=== PATIENT | male | born 1980 | race Caucasian/White ===

== ENCOUNTER 2020-11-25 14:20 | Inpatient (IN) ==
[2020-11-25] MEDS ORDERED: rOPINIRole 1 MG TABLET PO ONE (14:29)
[2020-11-25] MEDS ORDERED: Gadolinium Contrast Agent (WT Based) IV PRN (14:39)
[2020-11-25 15:00] LABS: Basophils % 0.3 %; Eosinophils # 0.1 K/mcL (0.0-0.6); Eosinophils % 0.3 %; Hematocrit 28.3 % (37.5-50.1); Hemoglobin 9.3 g/dL (12.9-16.9); Immature Granulocytes % 0.8 % (0-4); Lymphocytes # 0.6 K/mcL (0.6-4.6); Lymphocytes % 4.1 %; Mean Corpuscular HGB Conc 32.9 g/dL (31.6-35.5); Mean Corpuscular Hemoglobin 29.3 pg (28.0-33.3); Mean Corpuscular Volume 89.3 fL (83.0-100.0); Mean Platelet Volume 10.6 fL (9.4-12.4); Monocytes # 1.8 K/mcL (0.0-1.3); Monocytes % 11.9 %; Neutrophils # 12.6 K/mcL (1.6-8.9); Platelet Count 189 K/mcL (140-400); Red Blood Count 3.17 M/mcL (4.19-5.50); Segmented Neutrophils % 82.6 %
[2020-11-25 15:01] LABS: Basophils # 0.1 K/mcL (0.0-0.2); White Blood Count 15.3 K/mcL (4.3-11.1)
[2020-11-25 15:06] LABS: INR 1.3; Prothrombin Time 14.3 Seconds (9.4-12.1)
[2020-11-25 15:08] LABS: Activated Partial Thrombo Time 29.4 Seconds (26.0-36.0)
[2020-11-25 15:33] LABS: Albumin 4.2 g/dL (3.5-5.7); Albumin/Globulin Ratio 1.3 (1.1-2.2); Bilirubin,Direct 0.4 mg/dL (0.0-0.2); Bilirubin,Indirect 0.7 mg/dL (0.0-1.0); Bilirubin,Total 1.1 mg/dL (0.3-1.0); Calcium 6.9 mg/dL (8.6-10.3); Globulin 3.2 g/dL (2.4-3.5); Magnesium 2.2 mg/dL (1.6-2.6); Potassium 3.5 mEq/L (3.5-5.1); Total Protein 7.4 g/dL (6.4-8.9)
[2020-11-25 15:46] LABS: Adenovirus Not Detected (Not Detect); Bordetella Pertussis Not Detected (Not Detect); Chlamydophila pneumoniae Not Detected (Not Detect); Coronavirus 229E Not Detected (Not Detect); Coronavirus HKU1 Not Detected (Not Detect); Coronavirus NL63 Not Detected (Not Detect); Coronavirus OC43 Not Detected (Not Detect); Human Metapneumovirus Not Detected (Not Detect); Human Rhinovirus/Enterovirus Not Detected (Not Detect); Influenza A Subtype 2009 H1 Not Detected (Not Detect); Influenza B Not Detected (Not Detect); Mycoplasma pneumoniae Not Detected (Not Detect); Parainfluenza Virus 1 Not Detected (Not Detect); Parainfluenza Virus 2 Not Detected (Not Detect); Parainfluenza Virus 3 Not Detected (Not Detect); Parainfluenza Virus 4 Not Detected (Not Detect); Respiratory Syncytial Virus Not Detected (Not Detect); SARS-CoV-2 Not Detected (Not Detect)
[2020-11-25] MEDS ORDERED: 0.9 % Sodium Chloride 500 ML IV ONE (15:46)
[2020-11-25 16:18] LABS: Troponin I 0.03 ng/mL (< 0.04)
[2020-11-25 16:43] LABS: Amorphous Sediment,Urine Few per hpf (None-Few); Bacteria,Urine Few per hpf (None-Few); Bilirubin,Urine Negative (Negative); Blood,Urine Large (Negative); Clarity,Urine Clear (Clear); Color,Urine Light-Yellow (Yellow); Glucose,Urine (UA) Normal (Normal); Ketones,Urine Negative (Negative); Leukocyte Esterase,Urine Negative (Negative); Nitrite,Urine Negative (Negative); Protein,Urine 100 mg/dL (Neg-Trace); RBC,Urine 0-3 per hpf (0-3); Specific Gravity,Urine 1.008 (1.010-1.025); Squamous Epithelial Cell,Urine Few per hpf (None-Few); Urobilinogen,Urine Normal (Normal); WBC,Urine 0-3 per hpf (0-3)
[2020-11-25] MEDS ORDERED: Ondansetron 4 MG/2 ML VIAL IVP PRN (17:44)
[2020-11-25] MEDS ORDERED: Naloxone 0.4 MG/ML INJ IVP PRN (17:44)
[2020-11-25] MEDS ORDERED: Piperacillin/Tazobactam 3.375 GM in 0.9 % Sodium Chloride Mini Bag 100 ML IVPB SCH (18:00)
[2020-11-25] MEDS ORDERED: levoFLOXacin 750 MG/150 ML 750 MG/150 ML BAG IVPB ONE (19:00)
[2020-11-25] MEDS ORDERED: Vancomycin 1,250 MG/262.5 ML IV.SOLN IVPB ONE (20:00)
[2020-11-25] MEDS ORDERED: *HR* Methadone 5 MG TABLET PO SCH (23:00)
[2020-11-26] MEDS ORDERED: *HR* Methadone 10 MG TABLET PO ONE (00:45)
[2020-11-26] MEDS: Acetaminophen 325 MG TABLET PO PRN ×2 (04:44→23:53)
[2020-11-26 07:00] LABS: Enterococcus by PCR Not Detected (Not Detect); Staphylococcus aureus by PCR DETECTED (Not Detect); mecA Methicillin-Resist Gene Not Detected (Not Detect)
[2020-11-26 07:01] LABS: Acinetobacter baumannii by PCR Not Detected (Not Detect); Candida albicans by PCR Not Detected (Not Detect); Candida glabrata by PCR Not Detected (Not Detect); Candida krusei by PCR Not Detected (Not Detect); Candida parapsilosis by PCR Not Detected (Not Detect); Candida tropicalis by PCR Not Detected (Not Detect); Enterobacter cloacae Cmplx PCR Not Detected (Not Detect); Enterobacteriaceae by PCR Not Detected (Not Detect); Escherichia coli by PCR Not Detected (Not Detect); Klebsiella oxytoca by PCR Not Detected (Not Detect); Klebsiella pneumoniae by PCR Not Detected (Not Detect); Proteus by PCR Not Detected (Not Detect); Pseudomonas aeruginosa by PCR Not Detected (Not Detect); Serratia marcescens by PCR Not Detected (Not Detect); Streptococcus agalactiae(B)PCR Not Detected (Not Detect); Streptococcus by PCR Not Detected (Not Detect); Streptococcus pneumoniae PCR Not Detected (Not Detect); Streptococcus pyogenes (A) PCR Not Detected (Not Detect)
[2020-11-26 07:13] LABS: Basophils # 0.1 K/mcL (0.0-0.2); Basophils % 0.4 %; Eosinophils # 0.1 K/mcL (0.0-0.6); Eosinophils % 0.7 %; Hematocrit 26.5 % (37.5-50.1); Hemoglobin 8.8 g/dL (12.9-16.9); Immature Granulocytes % 2.1 % (0-4); Lymphocytes # 0.5 K/mcL (0.6-4.6); Lymphocytes % 3.9 %; Mean Corpuscular HGB Conc 33.2 g/dL (31.6-35.5); Mean Corpuscular Hemoglobin 29.9 pg (28.0-33.3); Mean Corpuscular Volume 90.1 fL (83.0-100.0); Monocytes # 1.2 K/mcL (0.0-1.3); Monocytes % 10.4 %; Neutrophils # 9.8 K/mcL (1.6-8.9); Platelet Count 160 K/mcL (140-400); Red Blood Count 2.94 M/mcL (4.19-5.50); Red Cell Distribution Width 14.3 % (11.5-14.5); Segmented Neutrophils % 82.5 %; White Blood Count 11.9 K/mcL (4.3-11.1)
[2020-11-26 07:32] LABS: BUN/Creatinine Ratio 11 (6-26); Blood Urea Nitrogen 75 mg/dL (6-20); Calcium 6.6 mg/dL (8.6-10.3); Carbon Dioxide 16 mEq/L (23-29); Chloride 96 mEq/L (98-107); Glucose 74 mg/dL (70-105); Lipase 34 Units/L (11-82); Osmolality,Calculated 291 (280-300); Potassium 3.9 mEq/L (3.5-5.1); Sodium 130 mEq/L (136-145); eGFR For African Americans 11 (> 60); eGFR For Non-African Americans 9 (> 60)
[2020-11-26] MEDS ORDERED: *HR* Methadone 5 MG TABLET PO SCH ×3 (08:00→22:00)
[2020-11-26] MEDS: *HR* Methadone 5 MG TABLET PO SCH ×3 (08:08→23:49)
[2020-11-26] MEDS ORDERED: Acyclovir 200 MG CAPSULE PO SCH (09:00)
[2020-11-26] MEDS ORDERED: Vancomycin 500 MG in 0.9 % Sodium Chloride Mini Bag 100 ML IVPB ONE (10:00)
[2020-11-26 10:09] LABS: C-Reactive Protein > 300 mg/L (Less than 10)
[2020-11-26] MEDS ORDERED: ACYCLOVIR 400 MG PO SCH (10:45)
[2020-11-26] MEDS: calcitrioL 0.25 MCG CAPSULE PO SCH (13:03)
[2020-11-26] MEDS: allopurinoL 100 MG TABLET PO SCH (13:03)
[2020-11-26] MEDS ORDERED: Perflutren Lipid Microsphere 1.3 ML in 0.9 % Sodium Chloride 8.7 ML IVP PRN (13:44)
[2020-11-26] MEDS ORDERED: *HR* Heparin 10,000 UNIT/10 ML VIAL IV PRN (14:26)
[2020-11-26] MEDS: Gabapentin 100 MG CAPSULE PO SCH ×2 (15:20→20:26)
[2020-11-26] MEDS ORDERED: MOM Conc 10 ML UD.LIQ PO PRN (16:30)
[2020-11-26] MEDS: *HR* Heparin 5,000 UNIT/ML VIAL SQ SCH (16:33)
[2020-11-26 17:46] LABS: Hepatitis B Surface Antibody < 3.10 mIU/mL
[2020-11-26 17:57] LABS: Hepatitis B Surface Antigen Nonreactive (Nonreactive)
[2020-11-26] MEDS: Melatonin 3 MG TABLET PO SCH (20:26)
[2020-11-27] MEDS: *HR* Heparin 5,000 UNIT/ML VIAL SQ SCH ×3 (03:55→17:54)
[2020-11-27 07:16] LABS: Basophils % 0.3 %; Eosinophils # 0.4 K/mcL (0.0-0.6); Eosinophils % 4.1 %; Hematocrit 26.9 % (37.5-50.1); Hemoglobin 8.7 g/dL (12.9-16.9); Immature Granulocytes % 1.7 % (0-4); Lymphocytes # 0.5 K/mcL (0.6-4.6); Lymphocytes % 4.8 %; Mean Corpuscular HGB Conc 32.3 g/dL (31.6-35.5); Mean Corpuscular Hemoglobin 29.3 pg (28.0-33.3); Mean Corpuscular Volume 90.6 fL (83.0-100.0); Mean Platelet Volume 10.9 fL (9.4-12.4); Monocytes # 1.1 K/mcL (0.0-1.3); Monocytes % 11.5 %; Neutrophils # 7.2 K/mcL (1.6-8.9); Platelet Count 194 K/mcL (140-400); Red Blood Count 2.97 M/mcL (4.19-5.50); Red Cell Distribution Width 14.4 % (11.5-14.5); Segmented Neutrophils % 77.6 %; White Blood Count 9.3 K/mcL (4.3-11.1)
[2020-11-27 07:23] LABS: Calcium 6.6 mg/dL (8.6-10.3); Potassium 3.6 mEq/L (3.5-5.1)
[2020-11-27] MEDS ORDERED: *HR* Heparin 10,000 UNIT/10 ML VIAL IV PRN (08:41)
[2020-11-27] MEDS ORDERED: 0.9 % Sodium Chloride 250 ML IVC PRN (08:41)
[2020-11-27] MEDS ORDERED: 0.9 % Sodium Chloride 1,000 ML PRIME SCH (08:45)
[2020-11-27] MEDS: polyethylene glycoL 3350 17 GM POWD.PACK PO SCH (08:52)
[2020-11-27] MEDS: *HR* Methadone 5 MG TABLET PO SCH ×3 (08:53→23:28)
[2020-11-27] MEDS: calcitrioL 0.25 MCG CAPSULE PO SCH (08:54)
[2020-11-27] MEDS: Gabapentin 100 MG CAPSULE PO SCH ×3 (08:55→20:46)
[2020-11-27] MEDS: allopurinoL 100 MG TABLET PO SCH (08:55)
[2020-11-27] MEDS ORDERED: Vancomycin 1,250 MG/262.5 ML IV.SOLN IVPB ONE (16:00)
[2020-11-27] MEDS: levoFLOXacin 500 MG/100 ML 500 MG/100 ML BAG IVPB SCH (19:32)
[2020-11-27] MEDS: Melatonin 3 MG TABLET PO SCH (20:46)
[2020-11-28 03:56] LABS: Hematocrit 30.4 % (37.5-50.1); Hemoglobin 9.8 g/dL (12.9-16.9); Mean Corpuscular HGB Conc 32.2 g/dL (31.6-35.5); Mean Corpuscular Hemoglobin 29.3 pg (28.0-33.3); Mean Corpuscular Volume 90.7 fL (83.0-100.0); Mean Platelet Volume 10.8 fL (9.4-12.4); Platelet Count 275 K/mcL (140-400); Red Blood Count 3.35 M/mcL (4.19-5.50); Red Cell Distribution Width 14.4 % (11.5-14.5); White Blood Count 12.9 K/mcL (4.3-11.1)
[2020-11-28 04:18] LABS: Calcium 7.5 mg/dL (8.6-10.3); Potassium 3.2 mEq/L (3.5-5.1)
[2020-11-28 04:39] LABS: Acinetobacter baumannii by PCR Not Detected (Not Detect); Candida albicans by PCR Not Detected (Not Detect); Candida glabrata by PCR Not Detected (Not Detect); Candida krusei by PCR Not Detected (Not Detect); Candida parapsilosis by PCR Not Detected (Not Detect); Candida tropicalis by PCR Not Detected (Not Detect); Enterobacter cloacae Cmplx PCR Not Detected (Not Detect); Enterobacteriaceae by PCR Not Detected (Not Detect); Enterococcus by PCR Not Detected (Not Detect); Escherichia coli by PCR Not Detected (Not Detect); Klebsiella oxytoca by PCR Not Detected (Not Detect); Klebsiella pneumoniae by PCR Not Detected (Not Detect); Proteus by PCR Not Detected (Not Detect); Pseudomonas aeruginosa by PCR Not Detected (Not Detect); Serratia marcescens by PCR Not Detected (Not Detect); Staphylococcus aureus by PCR DETECTED (Not Detect); Staphylococcus by PCR Not Detected (Not Detect); Streptococcus agalactiae(B)PCR Not Detected (Not Detect); Streptococcus by PCR Not Detected (Not Detect); Streptococcus pneumoniae PCR Not Detected (Not Detect); Streptococcus pyogenes (A) PCR Not Detected (Not Detect); mecA Methicillin-Resist Gene Not Detected (Not Detect)
[2020-11-28] MEDS: *HR* Heparin 5,000 UNIT/ML VIAL SQ SCH ×3 (04:50→17:14)
[2020-11-28] MEDS ORDERED: *HR* Heparin 10,000 UNIT/10 ML VIAL IV PRN (08:24)
[2020-11-28] MEDS ORDERED: 0.9 % Sodium Chloride 250 ML IVC PRN (08:24)
[2020-11-28] MEDS: Gabapentin 100 MG CAPSULE PO SCH ×3 (08:26→20:39)
[2020-11-28] MEDS: calcitrioL 0.25 MCG CAPSULE PO SCH (08:26)
[2020-11-28] MEDS: allopurinoL 100 MG TABLET PO SCH (08:26)
[2020-11-28] MEDS: polyethylene glycoL 3350 17 GM POWD.PACK PO SCH (08:27)
[2020-11-28] MEDS: *HR* Methadone 5 MG TABLET PO SCH ×2 (08:27→16:10)
[2020-11-28] MEDS ORDERED: *HR* HYDROmorphone (PF) 1 MG/ML SYRINGE IM ONE (09:03)
[2020-11-28] MEDS ORDERED: predniSONE 20 MG TABLET PO ONE (09:04)
[2020-11-28] MEDS ORDERED: Isovue-370 500 ML BOTTLE IVP ONE (09:09)
[2020-11-28 11:36] LABS: Basophils # 0.1 K/mcL (0.0-0.2); Basophils % 0.5 %; Eosinophils # 0.4 K/mcL (0.0-0.6); Eosinophils % 4.1 %; Hematocrit 28.2 % (37.5-50.1); Immature Granulocytes % 1.2 % (0-4); Lymphocytes # 0.4 K/mcL (0.6-4.6); Lymphocytes % 4.1 %; Mean Corpuscular HGB Conc 31.9 g/dL (31.6-35.5); Mean Platelet Volume 10.7 fL (9.4-12.4); Monocytes # 1.1 K/mcL (0.0-1.3); Monocytes % 10.8 %; Platelet Count 197 K/mcL (140-400); Red Cell Distribution Width 14.6 % (11.5-14.5); Segmented Neutrophils % 79.3 %
[2020-11-28 11:58] LABS: Albumin 3.4 g/dL (3.5-5.7); Bilirubin,Total 0.7 mg/dL (0.3-1.0); Calcium 7.1 mg/dL (8.6-10.3); Globulin 3.4 g/dL (2.4-3.5); Potassium 3.3 mEq/L (3.5-5.1); Total Protein 6.8 g/dL (6.4-8.9); Troponin I 0.03 ng/mL (< 0.04)
[2020-11-28] MEDS: Acyclovir 200 MG CAPSULE PO SCH (16:10)
[2020-11-28] MEDS: Melatonin 3 MG TABLET PO SCH (20:40)
[2020-11-29] MEDS: *HR* Methadone 5 MG TABLET PO SCH ×3 (00:02→15:08)
[2020-11-29 01:59] LABS: Protein/Creatinine Ratio,Urine 3.32 mg/mg (0.00-0.20)
[2020-11-29] MEDS: *HR* Heparin 5,000 UNIT/ML VIAL SQ SCH ×3 (05:03→17:06)
[2020-11-29 05:54] LABS: Basophils % 0.2 %; Eosinophils % 0.1 %; Hematocrit 28.8 % (37.5-50.1); Hemoglobin 9.8 g/dL (12.9-16.9); Immature Granulocytes % 1.3 % (0-4); Lymphocytes # 0.6 K/mcL (0.6-4.6); Lymphocytes % 4.5 %; Mean Corpuscular Hemoglobin 30.6 pg (28.0-33.3); Mean Platelet Volume 10.7 fL (9.4-12.4); Monocytes # 0.8 K/mcL (0.0-1.3); Monocytes % 5.9 %; Neutrophils # 11.4 K/mcL (1.6-8.9); Platelet Count 306 K/mcL (140-400); Red Cell Distribution Width 14.6 % (11.5-14.5)
[2020-11-29 06:15] LABS: Albumin 3.9 g/dL (3.5-5.7); Bilirubin,Total 0.6 mg/dL (0.3-1.0); Calcium 8.1 mg/dL (8.6-10.3); Potassium 3.8 mEq/L (3.5-5.1); Total Protein 7.9 g/dL (6.4-8.9)
[2020-11-29] MEDS: calcitrioL 0.25 MCG CAPSULE PO SCH (09:15)
[2020-11-29] MEDS: Gabapentin 100 MG CAPSULE PO SCH ×3 (09:16→20:56)
[2020-11-29] MEDS: polyethylene glycoL 3350 17 GM POWD.PACK PO SCH (09:16)
[2020-11-29] MEDS: allopurinoL 100 MG TABLET PO SCH (09:16)
[2020-11-29] MEDS ORDERED: Vancomycin 500 MG in 0.9 % Sodium Chloride Mini Bag 100 ML IVPB ONE (11:00)
[2020-11-29] MEDS: *HR* LORazepam 0.5 MG TABLET PO PRN ×2 (12:17→22:10)
[2020-11-29] MEDS: levoFLOXacin 500 MG/100 ML 500 MG/100 ML BAG IVPB SCH (17:17)
[2020-11-29] MEDS: Melatonin 3 MG TABLET PO SCH (20:55)
[2020-11-29] MEDS: traZODone 50 MG TABLET PO SCH (20:56)
[2020-11-30] MEDS: *HR* Methadone 5 MG TABLET PO SCH ×3 (00:04→15:27)
[2020-11-30 01:10] LABS: Hematocrit 25.3 % (37.5-50.1); Mean Corpuscular Hemoglobin 29.3 pg (28.0-33.3); Mean Corpuscular Volume 91.7 fL (83.0-100.0); Mean Platelet Volume 10.8 fL (9.4-12.4); Platelet Count 250 K/mcL (140-400); Red Blood Count 2.76 M/mcL (4.19-5.50); Red Cell Distribution Width 14.6 % (11.5-14.5); White Blood Count 12.1 K/mcL (4.3-11.1)
[2020-11-30 01:12] LABS: Hemoglobin 8.1 g/dL (12.9-16.9)
[2020-11-30 01:29] LABS: Calcium 7.1 mg/dL (8.6-10.3); Potassium 3.4 mEq/L (3.5-5.1)
[2020-11-30] MEDS: *HR* Heparin 5,000 UNIT/ML VIAL SQ SCH ×3 (05:23→17:00)
[2020-11-30] MEDS ORDERED: 0.9 % Sodium Chloride 250 ML IVC PRN (08:02)
[2020-11-30] MEDS: allopurinoL 100 MG TABLET PO SCH (09:05)
[2020-11-30] MEDS: Gabapentin 100 MG CAPSULE PO SCH ×3 (09:05→21:22)
[2020-11-30] MEDS: calcitrioL 0.25 MCG CAPSULE PO SCH (09:05)
[2020-11-30] MEDS: polyethylene glycoL 3350 17 GM POWD.PACK PO SCH (09:06)
[2020-11-30] MEDS ORDERED: *HR* LORazepam 2 MG/ML VIAL IVP ONE (10:30)
[2020-11-30] MEDS ORDERED: Albumin 25% 25gram/100mL 25 GM/100 ML IV.SOLN IVPB ONE (10:34)
[2020-11-30] MEDS: Acyclovir 200 MG CAPSULE PO SCH (15:26)
[2020-11-30] MEDS ORDERED: Vancomycin 500 MG in 0.9 % Sodium Chloride Mini Bag 100 ML IVPB ONE (16:00)
[2020-11-30] MEDS: traZODone 50 MG TABLET PO SCH (21:20)
[2020-11-30] MEDS: Melatonin 3 MG TABLET PO SCH (21:20)
[2020-11-30] MEDS: Acetaminophen 325 MG TABLET PO PRN (21:26)
[2020-12-01] MEDS: *HR* Methadone 5 MG TABLET PO SCH ×4 (00:06→23:59)
[2020-12-01 03:25] LABS: Hematocrit 24.7 % (37.5-50.1); Hemoglobin 7.7 g/dL (12.9-16.9); Mean Corpuscular HGB Conc 31.2 g/dL (31.6-35.5); Mean Corpuscular Hemoglobin 29.5 pg (28.0-33.3); Mean Corpuscular Volume 94.6 fL (83.0-100.0); Mean Platelet Volume 10.7 fL (9.4-12.4); Platelet Count 225 K/mcL (140-400); Red Blood Count 2.61 M/mcL (4.19-5.50); Red Cell Distribution Width 14.9 % (11.5-14.5); White Blood Count 9.4 K/mcL (4.3-11.1)
[2020-12-01 04:04] LABS: Calcium 7.3 mg/dL (8.6-10.3); Potassium 4.1 mEq/L (3.5-5.1)
[2020-12-01] MEDS: *HR* Heparin 5,000 UNIT/ML VIAL SQ SCH ×2 (05:17→16:53)
[2020-12-01] MEDS: calcitrioL 0.25 MCG CAPSULE PO SCH (09:08)
[2020-12-01] MEDS: Gabapentin 100 MG CAPSULE PO SCH ×3 (09:08→20:44)
[2020-12-01] MEDS: allopurinoL 100 MG TABLET PO SCH (09:08)
[2020-12-01] MEDS: polyethylene glycoL 3350 17 GM POWD.PACK PO SCH (09:08)
[2020-12-01 18:07] LABS: Lambda Qnt Free Light Chains 43.16 mg/L (5.71-26.30)
[2020-12-01] MEDS: *HR* LORazepam 0.5 MG TABLET PO PRN (18:35)
[2020-12-01] MEDS: traZODone 50 MG TABLET PO SCH (20:44)
[2020-12-01] MEDS: Melatonin 3 MG TABLET PO SCH (20:44)
[2020-12-01] MEDS: Acetaminophen 325 MG TABLET PO PRN (20:45)
[2020-12-02] MEDS: *HR* Heparin 5,000 UNIT/ML VIAL SQ SCH ×2 (04:33→18:11)
[2020-12-02] MEDS: *HR* Methadone 5 MG TABLET PO SCH ×3 (08:05→23:36)
[2020-12-02] MEDS: calcitrioL 0.25 MCG CAPSULE PO SCH (08:07)
[2020-12-02] MEDS: allopurinoL 100 MG TABLET PO SCH (08:07)
[2020-12-02] MEDS: Gabapentin 100 MG CAPSULE PO SCH ×3 (08:07→20:00)
[2020-12-02] MEDS: polyethylene glycoL 3350 17 GM POWD.PACK PO SCH (08:14)
[2020-12-02] MEDS ORDERED: Vancomycin 1,250 MG/262.5 ML IV.SOLN IVPB ONE (09:00)
[2020-12-02 10:45] LABS: Kappa Qnt Free Light Chains 122.8 mg/L (3.30-19.40)
[2020-12-02] MEDS: Acyclovir 200 MG CAPSULE PO SCH (16:07)
[2020-12-02] MEDS: traZODone 50 MG TABLET PO SCH (19:59)
[2020-12-02] MEDS: Melatonin 3 MG TABLET PO SCH (20:00)
[2020-12-02] MEDS: *HR* LORazepam 0.5 MG TABLET PO PRN (20:05)
[2020-12-03 01:21] LABS: Albumin 3.1 g/dL (3.5-5.7); Bilirubin,Total 0.4 mg/dL (0.3-1.0); Calcium 6.5 mg/dL (8.6-10.3); Potassium 4.4 mEq/L (3.5-5.1); Total Protein 6.1 g/dL (6.4-8.9)
[2020-12-03] MEDS: *HR* Heparin 5,000 UNIT/ML VIAL SQ SCH ×2 (04:29→17:02)
[2020-12-03] MEDS: polyethylene glycoL 3350 17 GM POWD.PACK PO SCH (08:31)
[2020-12-03] MEDS: calcitrioL 0.25 MCG CAPSULE PO SCH (08:31)
[2020-12-03] MEDS: Gabapentin 100 MG CAPSULE PO SCH ×3 (08:31→20:29)
[2020-12-03] MEDS: *HR* Methadone 5 MG TABLET PO SCH ×2 (08:31→15:07)
[2020-12-03] MEDS: allopurinoL 100 MG TABLET PO SCH (08:31)
[2020-12-03] MEDS: traZODone 50 MG TABLET PO SCH (20:29)
[2020-12-03] MEDS: *HR* LORazepam 0.5 MG TABLET PO PRN (20:29)
[2020-12-03] MEDS: Melatonin 3 MG TABLET PO SCH (20:29)
[2020-12-04] MEDS: *HR* Methadone 5 MG TABLET PO SCH ×3 (00:18→15:18)
[2020-12-04] MEDS: *HR* Heparin 5,000 UNIT/ML VIAL SQ SCH ×2 (04:32→16:58)
[2020-12-04 04:42] LABS: Basophils % 0.5 %; Eosinophils # 0.4 K/mcL (0.0-0.6); Eosinophils % 4.7 %; Hemoglobin 7.9 g/dL (12.9-16.9); Immature Granulocytes % 1.5 % (0-4); Lymphocytes # 0.6 K/mcL (0.6-4.6); Lymphocytes % 7.5 %; Mean Corpuscular HGB Conc 31.6 g/dL (31.6-35.5); Mean Corpuscular Volume 95.1 fL (83.0-100.0); Mean Platelet Volume 10.3 fL (9.4-12.4); Monocytes # 0.7 K/mcL (0.0-1.3); Monocytes % 9.5 %; Neutrophils # 5.6 K/mcL (1.6-8.9); Platelet Count 270 K/mcL (140-400); Red Blood Count 2.63 M/mcL (4.19-5.50); Red Cell Distribution Width 14.5 % (11.5-14.5); Segmented Neutrophils % 76.3 %; White Blood Count 7.4 K/mcL (4.3-11.1)
[2020-12-04 04:54] LABS: Alpha 2 Globulin (PEP) 1.41 g/dL (0.48-1.05); Beta Globulin (PEP) 0.54 g/dL (0.48-1.10)
[2020-12-04 04:57] LABS: Calcium 7.1 mg/dL (8.6-10.3); Potassium 4.3 mEq/L (3.5-5.1)
[2020-12-04] MEDS: allopurinoL 100 MG TABLET PO SCH (08:18)
[2020-12-04] MEDS: Gabapentin 100 MG CAPSULE PO SCH ×3 (08:18→21:12)
[2020-12-04] MEDS: calcitrioL 0.25 MCG CAPSULE PO SCH (08:18)
[2020-12-04] MEDS: polyethylene glycoL 3350 17 GM POWD.PACK PO SCH (08:18)
[2020-12-04] MEDS ORDERED: *HR* Heparin 10,000 UNIT/10 ML VIAL IV PRN (09:17)
[2020-12-04] MEDS ORDERED: 0.9 % Sodium Chloride 250 ML IVC PRN (09:17)
[2020-12-04] MEDS ORDERED: Heparin 1,000 UNITS/500 mL 500 ML ONE (10:21)
[2020-12-04] MEDS ORDERED: Lidocaine/EPI 1:100k 1% 50 ML VIAL ONE (10:21)
[2020-12-04] MEDS ORDERED: 0.9 % Sodium Chloride 500 ML ONE (10:23)
[2020-12-04 10:40] LABS: IFE Reflexed IFE Done; Immunoglobulin A 162 mg/dL (68-408); Immunoglobulin G 1078 mg/dL (768-1632); Immunoglobulin M 32 mg/dL (35-263)
[2020-12-04] MEDS ORDERED: *HR* FentaNYL (PF) 100 MCG/2 ML VIAL IVP ONE (10:53)
[2020-12-04] MEDS ORDERED: *HR* Midazolam HCl 2 MG/2 ML VIAL IVP ONE (10:53)
[2020-12-04] MEDS ORDERED: *HR* Midazolam HCl 2 MG/2 ML VIAL ONE (10:55)
[2020-12-04] MEDS ORDERED: *HR* FentaNYL (PF) 100 MCG/2 ML VIAL ONE (10:55)
[2020-12-04] MEDS ORDERED: *HR* Heparin 5,000 UNIT/ML VIAL ONE (11:06)
[2020-12-04] MEDS: Acyclovir 200 MG CAPSULE PO SCH (15:18)
[2020-12-04] MEDS ORDERED: Vancomycin 500 MG in 0.9 % Sodium Chloride Mini Bag 100 ML IVPB ONE (17:00)
[2020-12-04] MEDS: Acetaminophen 325 MG TABLET PO PRN (18:13)
[2020-12-04] MEDS: Melatonin 3 MG TABLET PO SCH (21:12)
[2020-12-04] MEDS: traZODone 50 MG TABLET PO SCH (21:12)
[2020-12-05] MEDS: *HR* Methadone 5 MG TABLET PO SCH ×3 (01:11→16:13)
[2020-12-05 01:59] LABS: Basophils # 0.1 K/mcL (0.0-0.2); Eosinophils # 0.3 K/mcL (0.0-0.6); Eosinophils % 4.8 %; Hematocrit 27.5 % (37.5-50.1); Hemoglobin 8.3 g/dL (12.9-16.9); Immature Granulocytes % 0.9 % (0-4); Lymphocytes # 0.4 K/mcL (0.6-4.6); Lymphocytes % 7.4 %; Mean Corpuscular HGB Conc 30.2 g/dL (31.6-35.5); Mean Corpuscular Hemoglobin 28.8 pg (28.0-33.3); Mean Corpuscular Volume 95.5 fL (83.0-100.0); Mean Platelet Volume 10.3 fL (9.4-12.4); Monocytes # 0.6 K/mcL (0.0-1.3); Monocytes % 10.8 %; Neutrophils # 4.4 K/mcL (1.6-8.9); Platelet Count 259 K/mcL (140-400); Red Blood Count 2.88 M/mcL (4.19-5.50); Red Cell Distribution Width 14.3 % (11.5-14.5); Segmented Neutrophils % 75.1 %; White Blood Count 5.8 K/mcL (4.3-11.1)
[2020-12-05 02:08] LABS: Calcium 7.2 mg/dL (8.6-10.3); Potassium 4.4 mEq/L (3.5-5.1)
[2020-12-05] MEDS: *HR* Heparin 5,000 UNIT/ML VIAL SQ SCH ×2 (05:08→16:15)
[2020-12-05] MEDS: calcitrioL 0.25 MCG CAPSULE PO SCH (08:48)
[2020-12-05] MEDS: Acetaminophen 325 MG TABLET PO PRN ×3 (08:48→22:25)
[2020-12-05] MEDS: allopurinoL 100 MG TABLET PO SCH (08:49)
[2020-12-05] MEDS: Gabapentin 100 MG CAPSULE PO SCH ×3 (08:49→22:19)
[2020-12-05] MEDS: *HR* LORazepam 0.5 MG TABLET PO PRN ×2 (08:49→16:33)
[2020-12-05] MEDS: polyethylene glycoL 3350 17 GM POWD.PACK PO SCH (08:49)
[2020-12-05] MEDS: Melatonin 3 MG TABLET PO SCH (22:19)
[2020-12-05] MEDS: traZODone 50 MG TABLET PO SCH (22:19)
[2020-12-06] MEDS: *HR* Methadone 5 MG TABLET PO SCH ×3 (00:05→16:30)
[2020-12-06 04:01] LABS: Calcium 7.1 mg/dL (8.6-10.3); Potassium 4.2 mEq/L (3.5-5.1)
[2020-12-06] MEDS: *HR* Heparin 5,000 UNIT/ML VIAL SQ SCH ×2 (04:01→16:31)
[2020-12-06] MEDS: calcitrioL 0.25 MCG CAPSULE PO SCH (09:22)
[2020-12-06] MEDS: Gabapentin 100 MG CAPSULE PO SCH ×3 (09:22→21:27)
[2020-12-06] MEDS: allopurinoL 100 MG TABLET PO SCH (09:22)
[2020-12-06] MEDS: polyethylene glycoL 3350 17 GM POWD.PACK PO SCH (09:26)
[2020-12-06] MEDS: Acyclovir 200 MG CAPSULE PO SCH (16:31)
[2020-12-06] MEDS: traZODone 50 MG TABLET PO SCH (21:26)
[2020-12-06] MEDS: Melatonin 3 MG TABLET PO SCH (21:28)
[2020-12-06] MEDS: *HR* LORazepam 0.5 MG TABLET PO PRN (21:34)
[2020-12-07] MEDS: *HR* Methadone 5 MG TABLET PO SCH ×3 (00:15→17:00)
[2020-12-07] MEDS: *HR* Heparin 5,000 UNIT/ML VIAL SQ SCH ×2 (05:42→17:04)
[2020-12-07] MEDS: calcitrioL 0.25 MCG CAPSULE PO SCH (07:43)
[2020-12-07] MEDS: allopurinoL 100 MG TABLET PO SCH (07:44)
[2020-12-07] MEDS ORDERED: *HR* Heparin 10,000 UNIT/10 ML VIAL IV PRN (08:17)
[2020-12-07] MEDS ORDERED: 0.9 % Sodium Chloride 250 ML IVC PRN ×2 (08:17→08:32)
[2020-12-07 08:28] LABS: Hematocrit 24.2 % (37.5-50.1); Hemoglobin 7.4 g/dL (12.9-16.9); Mean Corpuscular HGB Conc 30.6 g/dL (31.6-35.5); Mean Corpuscular Hemoglobin 29.1 pg (28.0-33.3); Mean Corpuscular Volume 95.3 fL (83.0-100.0); Mean Platelet Volume 10.1 fL (9.4-12.4); Platelet Count 232 K/mcL (140-400); Red Blood Count 2.54 M/mcL (4.19-5.50); Red Cell Distribution Width 14.1 % (11.5-14.5); White Blood Count 4.2 K/mcL (4.3-11.1)
[2020-12-07] MEDS ORDERED: *HR* Midazolam HCl 5 MG/5 ML VIAL IVP PRN (08:32)
[2020-12-07] MEDS ORDERED: Lidocaine Viscous Oral Soln 15 ML SOLUTION MM PRN ×2 (08:32→12:47)
[2020-12-07] MEDS ORDERED: *HR* FentaNYL (PF) 100 MCG/2 ML VIAL IVP PRN (08:32)
[2020-12-07] MEDS ORDERED: 0.9 % Sodium Chloride 500 ML IVC ONE ×2 (08:32→12:48)
[2020-12-07 08:47] LABS: Calcium 6.9 mg/dL (8.6-10.3); Potassium 4.2 mEq/L (3.5-5.1)
[2020-12-07] MEDS: polyethylene glycoL 3350 17 GM POWD.PACK PO SCH (09:00)
[2020-12-07] MEDS: Gabapentin 100 MG CAPSULE PO SCH ×3 (09:59→19:45)
[2020-12-07] MEDS: *HR* FentaNYL (PF) 100 MCG/2 ML VIAL IVP PRN ×2 (13:50→13:55)
[2020-12-07] MEDS: *HR* Midazolam HCl 5 MG/5 ML VIAL IVP PRN ×2 (13:50→13:55)
[2020-12-07] MEDS ORDERED: Vancomycin 1,250 MG/262.5 ML IV.SOLN IVPB ONE (16:00)
[2020-12-07] MEDS: traZODone 50 MG TABLET PO SCH (19:45)
[2020-12-07] MEDS: Melatonin 3 MG TABLET PO SCH (19:45)
[2020-12-07] MEDS: *HR* LORazepam 0.5 MG TABLET PO PRN (19:49)
[2020-12-08] MEDS: *HR* Methadone 5 MG TABLET PO SCH ×4 (00:27→23:26)
[2020-12-08 01:35] LABS: Hematocrit 24.9 % (37.5-50.1); Hemoglobin 7.9 g/dL (12.9-16.9); Mean Corpuscular HGB Conc 31.7 g/dL (31.6-35.5); Mean Corpuscular Volume 94.7 fL (83.0-100.0); Mean Platelet Volume 10.6 fL (9.4-12.4); Platelet Count 273 K/mcL (140-400); Red Blood Count 2.63 M/mcL (4.19-5.50); Red Cell Distribution Width 13.9 % (11.5-14.5)
[2020-12-08 01:36] LABS: White Blood Count 6.6 K/mcL (4.3-11.1)
[2020-12-08 01:58] LABS: Calcium 7.6 mg/dL (8.6-10.3); Potassium 3.8 mEq/L (3.5-5.1)
[2020-12-08] MEDS: *HR* Heparin 5,000 UNIT/ML VIAL SQ SCH ×2 (04:43→17:59)
[2020-12-08] MEDS: calcitrioL 0.25 MCG CAPSULE PO SCH (09:23)
[2020-12-08] MEDS: Gabapentin 100 MG CAPSULE PO SCH ×3 (09:26→21:05)
[2020-12-08] MEDS: allopurinoL 100 MG TABLET PO SCH (09:26)
[2020-12-08] MEDS: polyethylene glycoL 3350 17 GM POWD.PACK PO SCH (09:26)
[2020-12-08] MEDS: Acyclovir 200 MG CAPSULE PO SCH (15:30)
[2020-12-08] MEDS: Melatonin 3 MG TABLET PO SCH (21:05)
[2020-12-08] MEDS: traZODone 50 MG TABLET PO SCH (21:05)
[2020-12-09 01:40] LABS: Hematocrit 22.5 % (37.5-50.1); Hemoglobin 7.1 g/dL (12.9-16.9); Mean Corpuscular HGB Conc 31.6 g/dL (31.6-35.5); Mean Corpuscular Hemoglobin 29.7 pg (28.0-33.3); Mean Corpuscular Volume 94.1 fL (83.0-100.0); Platelet Count 248 K/mcL (140-400); Red Blood Count 2.39 M/mcL (4.19-5.50); Red Cell Distribution Width 13.7 % (11.5-14.5); White Blood Count 5.1 K/mcL (4.3-11.1)
[2020-12-09 01:58] LABS: Potassium 4.1 mEq/L (3.5-5.1)
[2020-12-09] MEDS: *HR* Heparin 5,000 UNIT/ML VIAL SQ SCH ×2 (05:07→17:20)
[2020-12-09] MEDS: polyethylene glycoL 3350 17 GM POWD.PACK PO SCH (08:18)
[2020-12-09] MEDS: Gabapentin 100 MG CAPSULE PO SCH ×3 (08:25→21:03)
[2020-12-09] MEDS: calcitrioL 0.25 MCG CAPSULE PO SCH (08:25)
[2020-12-09] MEDS: *HR* Methadone 5 MG TABLET PO SCH ×3 (08:25→22:57)
[2020-12-09] MEDS: allopurinoL 100 MG TABLET PO SCH (08:25)
[2020-12-09] MEDS ORDERED: *HR* Heparin 10,000 UNIT/10 ML VIAL IV PRN (08:50)
[2020-12-09] MEDS ORDERED: 0.9 % Sodium Chloride 250 ML IVC PRN (08:50)
[2020-12-09 11:05] LABS: % Iron Saturation 12 % (20-55); Iron 25 mcg/dL (65-175); Transferrin 155 mg/dL (203-362)
[2020-12-09 11:31] LABS: Folate 7.3 ng/mL (3.0-16.0)
[2020-12-09] MEDS ORDERED: Vancomycin 500 MG in 0.9 % Sodium Chloride Mini Bag 100 ML IVPB ONE (16:00)
[2020-12-09] MEDS: traZODone 50 MG TABLET PO SCH (21:03)
[2020-12-09] MEDS: Melatonin 3 MG TABLET PO SCH (21:03)
[2020-12-09] MEDS: *HR* LORazepam 0.5 MG TABLET PO PRN (22:57)
[2020-12-10 02:13] LABS: Hematocrit 24.2 % (37.5-50.1); Hemoglobin 7.7 g/dL (12.9-16.9); Mean Corpuscular HGB Conc 31.8 g/dL (31.6-35.5); Mean Corpuscular Hemoglobin 29.7 pg (28.0-33.3); Mean Corpuscular Volume 93.4 fL (83.0-100.0); Mean Platelet Volume 10.1 fL (9.4-12.4); Platelet Count 296 K/mcL (140-400); Red Blood Count 2.59 M/mcL (4.19-5.50); Red Cell Distribution Width 13.7 % (11.5-14.5); White Blood Count 5.8 K/mcL (4.3-11.1)
[2020-12-10 02:32] LABS: Calcium 7.5 mg/dL (8.6-10.3); Potassium 3.5 mEq/L (3.5-5.1)
[2020-12-10] MEDS: *HR* Heparin 5,000 UNIT/ML VIAL SQ SCH ×2 (05:27→15:31)
[2020-12-10] MEDS: calcitrioL 0.25 MCG CAPSULE PO SCH (08:48)
[2020-12-10] MEDS: *HR* Methadone 5 MG TABLET PO SCH ×2 (08:48→15:13)
[2020-12-10] MEDS: allopurinoL 100 MG TABLET PO SCH (08:49)
[2020-12-10] MEDS: Gabapentin 100 MG CAPSULE PO SCH ×3 (08:49→20:06)
[2020-12-10] MEDS: polyethylene glycoL 3350 17 GM POWD.PACK PO SCH (08:49)
[2020-12-10] MEDS: Acyclovir 200 MG CAPSULE PO SCH (15:15)
[2020-12-10] MEDS: Melatonin 3 MG TABLET PO SCH (20:06)
[2020-12-10] MEDS: *HR* LORazepam 0.5 MG TABLET PO PRN (20:06)
[2020-12-10] MEDS: traZODone 50 MG TABLET PO SCH (20:06)
[2020-12-11] MEDS: *HR* Methadone 5 MG TABLET PO SCH ×3 (00:02→15:24)
[2020-12-11 01:36] LABS: Hematocrit 23.9 % (37.5-50.1); Hemoglobin 7.5 g/dL (12.9-16.9); Mean Corpuscular HGB Conc 31.4 g/dL (31.6-35.5); Mean Corpuscular Hemoglobin 29.5 pg (28.0-33.3); Mean Corpuscular Volume 94.1 fL (83.0-100.0); Mean Platelet Volume 9.5 fL (9.4-12.4); Platelet Count 283 K/mcL (140-400); Red Blood Count 2.54 M/mcL (4.19-5.50); Red Cell Distribution Width 13.6 % (11.5-14.5); White Blood Count 4.9 K/mcL (4.3-11.1)
[2020-12-11 01:48] LABS: Calcium 7.7 mg/dL (8.6-10.3); Potassium 3.6 mEq/L (3.5-5.1)
[2020-12-11] MEDS: *HR* Heparin 5,000 UNIT/ML VIAL SQ SCH ×2 (05:04→17:42)
[2020-12-11] MEDS ORDERED: 0.9 % Sodium Chloride 250 ML IVC PRN (08:15)
[2020-12-11] MEDS ORDERED: *HR* Heparin 10,000 UNIT/10 ML VIAL IV PRN (08:15)
[2020-12-11] MEDS: calcitrioL 0.25 MCG CAPSULE PO SCH (08:35)
[2020-12-11] MEDS: Gabapentin 100 MG CAPSULE PO SCH ×3 (08:35→21:32)
[2020-12-11] MEDS: allopurinoL 100 MG TABLET PO SCH (08:37)
[2020-12-11] MEDS: polyethylene glycoL 3350 17 GM POWD.PACK PO SCH (08:41)
[2020-12-11] MEDS ORDERED: Vancomycin 750 MG in 0.9 % Sodium Chloride Mini Bag 100 ML IVPB SCH (16:00)
[2020-12-11] MEDS ORDERED: Vancomycin 1,250 MG/262.5 ML IV.SOLN IVPB ONE (16:00)
[2020-12-11] MEDS: Melatonin 3 MG TABLET PO SCH (21:33)
[2020-12-11] MEDS: traZODone 50 MG TABLET PO SCH (21:33)
[2020-12-11] MEDS: *HR* LORazepam 0.5 MG TABLET PO PRN (21:36)
[2020-12-12] MEDS: *HR* Methadone 5 MG TABLET PO SCH ×4 (00:44→23:52)
[2020-12-12 01:53] LABS: Hematocrit 26.1 % (37.5-50.1); Hemoglobin 7.9 g/dL (12.9-16.9); Mean Corpuscular HGB Conc 30.3 g/dL (31.6-35.5); Mean Corpuscular Hemoglobin 28.7 pg (28.0-33.3); Mean Corpuscular Volume 94.9 fL (83.0-100.0); Mean Platelet Volume 10.2 fL (9.4-12.4); Platelet Count 312 K/mcL (140-400); Red Blood Count 2.75 M/mcL (4.19-5.50); Red Cell Distribution Width 13.7 % (11.5-14.5); White Blood Count 5.7 K/mcL (4.3-11.1)
[2020-12-12 02:17] LABS: Calcium 8.5 mg/dL (8.6-10.3); Potassium 4.1 mEq/L (3.5-5.1)
[2020-12-12] MEDS: *HR* Heparin 5,000 UNIT/ML VIAL SQ SCH ×2 (05:02→18:48)
[2020-12-12] MEDS: polyethylene glycoL 3350 17 GM POWD.PACK PO SCH (09:44)
[2020-12-12] MEDS: Gabapentin 100 MG CAPSULE PO SCH ×3 (09:44→20:37)
[2020-12-12] MEDS: allopurinoL 100 MG TABLET PO SCH (09:45)
[2020-12-12] MEDS: calcitrioL 0.25 MCG CAPSULE PO SCH (10:00)
[2020-12-12] MEDS: Acyclovir 200 MG CAPSULE PO SCH (18:35)
[2020-12-12] MEDS: Melatonin 3 MG TABLET PO SCH (20:36)
[2020-12-12] MEDS: traZODone 50 MG TABLET PO SCH (20:37)
[2020-12-12] MEDS: *HR* LORazepam 0.5 MG TABLET PO PRN (20:37)
[2020-12-13] MEDS: *HR* Heparin 5,000 UNIT/ML VIAL SQ SCH ×2 (05:13→16:22)
[2020-12-13] MEDS: polyethylene glycoL 3350 17 GM POWD.PACK PO SCH ×2 (09:43→12:07)
[2020-12-13] MEDS: Gabapentin 100 MG CAPSULE PO SCH ×3 (09:43→22:41)
[2020-12-13] MEDS: *HR* Methadone 5 MG TABLET PO SCH ×3 (09:44→22:41)
[2020-12-13] MEDS: *HR* LORazepam 0.5 MG TABLET PO PRN (09:44)
[2020-12-13] MEDS: allopurinoL 100 MG TABLET PO SCH (09:45)
[2020-12-13] MEDS: calcitrioL 0.25 MCG CAPSULE PO SCH (09:45)
[2020-12-13] MEDS: traZODone 50 MG TABLET PO SCH (22:41)
[2020-12-13] MEDS: Melatonin 3 MG TABLET PO SCH (22:42)
[2020-12-14 00:42] LABS: Hematocrit 23.6 % (37.5-50.1); Hemoglobin 7.2 g/dL (12.9-16.9); Mean Corpuscular HGB Conc 30.5 g/dL (31.6-35.5); Mean Corpuscular Hemoglobin 29.1 pg (28.0-33.3); Mean Corpuscular Volume 95.5 fL (83.0-100.0); Mean Platelet Volume 9.1 fL (9.4-12.4); Platelet Count 265 K/mcL (140-400); Red Blood Count 2.47 M/mcL (4.19-5.50); Red Cell Distribution Width 13.9 % (11.5-14.5); White Blood Count 5.2 K/mcL (4.3-11.1)
[2020-12-14 01:01] LABS: Calcium 8.3 mg/dL (8.6-10.3); Potassium 4.1 mEq/L (3.5-5.1)
[2020-12-14] MEDS: *HR* Heparin 5,000 UNIT/ML VIAL SQ SCH ×2 (05:26→16:14)
[2020-12-14] MEDS: calcitrioL 0.25 MCG CAPSULE PO SCH (07:44)
[2020-12-14] MEDS: Gabapentin 100 MG CAPSULE PO SCH ×3 (07:44→20:24)
[2020-12-14] MEDS: *HR* Methadone 5 MG TABLET PO SCH ×3 (07:44→23:14)
[2020-12-14] MEDS: allopurinoL 100 MG TABLET PO SCH (07:45)
[2020-12-14] MEDS: polyethylene glycoL 3350 17 GM POWD.PACK PO SCH (07:45)
[2020-12-14] MEDS ORDERED: *HR* Heparin 10,000 UNIT/10 ML VIAL IV PRN ×2 (09:02)
[2020-12-14] MEDS ORDERED: 0.9 % Sodium Chloride 250 ML IVC PRN (09:02)
[2020-12-14] MEDS ORDERED: Vancomycin 500 MG in 0.9 % Sodium Chloride Mini Bag 100 ML IVPB ONE (16:00)
[2020-12-14] MEDS: Acyclovir 200 MG CAPSULE PO SCH (16:14)
[2020-12-14] MEDS: hydrOXYzine pamoate 25 MG CAPSULE PO PRN (16:30)
[2020-12-14] MEDS: traZODone 50 MG TABLET PO SCH (20:24)
[2020-12-14] MEDS: Melatonin 3 MG TABLET PO SCH (20:24)
[2020-12-15] MEDS: *HR* Heparin 5,000 UNIT/ML VIAL SQ SCH ×2 (05:08→15:27)
[2020-12-15 05:49] LABS: Hematocrit 24.5 % (37.5-50.1); Hemoglobin 7.4 g/dL (12.9-16.9); Mean Corpuscular HGB Conc 30.2 g/dL (31.6-35.5); Mean Corpuscular Hemoglobin 28.9 pg (28.0-33.3); Mean Corpuscular Volume 95.7 fL (83.0-100.0); Mean Platelet Volume 9.8 fL (9.4-12.4); Platelet Count 294 K/mcL (140-400); Red Blood Count 2.56 M/mcL (4.19-5.50); Red Cell Distribution Width 13.8 % (11.5-14.5); White Blood Count 4.5 K/mcL (4.3-11.1)
[2020-12-15 06:05] LABS: Calcium 8.7 mg/dL (8.6-10.3); Potassium 4.5 mEq/L (3.5-5.1)
[2020-12-15] MEDS: Gabapentin 100 MG CAPSULE PO SCH ×3 (08:23→20:17)
[2020-12-15] MEDS: calcitrioL 0.25 MCG CAPSULE PO SCH (08:23)
[2020-12-15] MEDS: allopurinoL 100 MG TABLET PO SCH (08:23)
[2020-12-15] MEDS: *HR* Methadone 5 MG TABLET PO SCH ×3 (08:23→22:43)
[2020-12-15] MEDS: polyethylene glycoL 3350 17 GM POWD.PACK PO SCH (08:24)
[2020-12-15] MEDS: traZODone 50 MG TABLET PO SCH (20:15)
[2020-12-15] MEDS: Melatonin 3 MG TABLET PO SCH (20:16)
[2020-12-15] MEDS: hydrOXYzine pamoate 25 MG CAPSULE PO PRN (20:17)
[2020-12-16 04:07] LABS: Hematocrit 22.8 % (37.5-50.1); Hemoglobin 7.1 g/dL (12.9-16.9); Mean Corpuscular HGB Conc 31.1 g/dL (31.6-35.5); Mean Corpuscular Hemoglobin 29.3 pg (28.0-33.3); Mean Corpuscular Volume 94.2 fL (83.0-100.0); Mean Platelet Volume 8.9 fL (9.4-12.4); Platelet Count 258 K/mcL (140-400); Red Blood Count 2.42 M/mcL (4.19-5.50); Red Cell Distribution Width 13.7 % (11.5-14.5); White Blood Count 3.9 K/mcL (4.3-11.1)
[2020-12-16 04:27] LABS: Calcium 8.4 mg/dL (8.6-10.3); Potassium 4.7 mEq/L (3.5-5.1)
[2020-12-16] MEDS: *HR* Heparin 5,000 UNIT/ML VIAL SQ SCH ×2 (05:01→17:53)
[2020-12-16] MEDS: allopurinoL 100 MG TABLET PO SCH (07:34)
[2020-12-16] MEDS: *HR* Methadone 5 MG TABLET PO SCH ×2 (07:34→15:50)
[2020-12-16] MEDS: calcitrioL 0.25 MCG CAPSULE PO SCH (07:34)
[2020-12-16] MEDS: Gabapentin 100 MG CAPSULE PO SCH ×3 (07:35→20:49)
[2020-12-16] MEDS: polyethylene glycoL 3350 17 GM POWD.PACK PO SCH (07:37)
[2020-12-16] MEDS ORDERED: 0.9 % Sodium Chloride 250 ML IVC PRN (08:33)
[2020-12-16] MEDS ORDERED: *HR* Heparin 10,000 UNIT/10 ML VIAL IV PRN ×2 (08:33)
[2020-12-16] MEDS: Acyclovir 200 MG CAPSULE PO SCH (15:49)
[2020-12-16] MEDS: Nicotine 21 MG PATCH.TD24 TD SCH (15:49)
[2020-12-16] MEDS ORDERED: Vancomycin 1,250 MG/262.5 ML IV.SOLN IVPB ONE (16:00)
[2020-12-16] MEDS: Melatonin 3 MG TABLET PO SCH (20:49)
[2020-12-16] MEDS: traZODone 50 MG TABLET PO SCH (20:49)
[2020-12-16] MEDS: hydrOXYzine pamoate 25 MG CAPSULE PO PRN (20:56)
[2020-12-17] MEDS: *HR* Methadone 5 MG TABLET PO SCH ×3 (00:09→15:32)
[2020-12-17 02:04] LABS: Hematocrit 25.3 % (37.5-50.1); Mean Corpuscular HGB Conc 31.6 g/dL (31.6-35.5); Mean Corpuscular Hemoglobin 29.5 pg (28.0-33.3); Mean Corpuscular Volume 93.4 fL (83.0-100.0); Mean Platelet Volume 9.5 fL (9.4-12.4); Platelet Count 326 K/mcL (140-400); Red Blood Count 2.71 M/mcL (4.19-5.50); Red Cell Distribution Width 13.8 % (11.5-14.5); White Blood Count 4.5 K/mcL (4.3-11.1)
[2020-12-17 02:24] LABS: Calcium 8.4 mg/dL (8.6-10.3)
[2020-12-17 02:34] LABS: Albumin 3.5 g/dL (3.5-5.7); Bilirubin,Indirect 0.3 mg/dL (0.0-1.0); Bilirubin,Total 0.3 mg/dL (0.3-1.0); Globulin 3.4 g/dL (2.4-3.5); Magnesium 1.8 mg/dL (1.6-2.6); Phosphorous 4.7 mg/dL (2.7-4.5); Total Protein 6.9 g/dL (6.4-8.9)
[2020-12-17 02:47] LABS: Folate 7.6 ng/mL (3.0-16.0)
[2020-12-17] MEDS: *HR* Heparin 5,000 UNIT/ML VIAL SQ SCH ×2 (05:45→14:57)
[2020-12-17] MEDS: calcitrioL 0.25 MCG CAPSULE PO SCH (08:17)
[2020-12-17] MEDS: allopurinoL 100 MG TABLET PO SCH (08:17)
[2020-12-17] MEDS: Gabapentin 100 MG CAPSULE PO SCH ×3 (08:17→21:13)
[2020-12-17] MEDS: Nicotine 21 MG PATCH.TD24 TD SCH (08:18)
[2020-12-17] MEDS: polyethylene glycoL 3350 17 GM POWD.PACK PO SCH (08:22)
[2020-12-17] MEDS: traZODone 50 MG TABLET PO SCH (21:13)
[2020-12-17] MEDS: Melatonin 3 MG TABLET PO SCH (21:14)
[2020-12-17] MEDS: hydrOXYzine pamoate 25 MG CAPSULE PO PRN (21:23)
[2020-12-18] MEDS: *HR* Methadone 5 MG TABLET PO SCH ×4 (00:16→23:52)
[2020-12-18 04:26] LABS: Hematocrit 23.5 % (37.5-50.1); Hemoglobin 7.1 g/dL (12.9-16.9); Mean Corpuscular HGB Conc 30.2 g/dL (31.6-35.5); Mean Corpuscular Hemoglobin 28.5 pg (28.0-33.3); Mean Corpuscular Volume 94.4 fL (83.0-100.0); Mean Platelet Volume 9.3 fL (9.4-12.4); Platelet Count 287 K/mcL (140-400); Red Blood Count 2.49 M/mcL (4.19-5.50); Red Cell Distribution Width 13.8 % (11.5-14.5); White Blood Count 3.7 K/mcL (4.3-11.1)
[2020-12-18] MEDS: *HR* Heparin 5,000 UNIT/ML VIAL SQ SCH ×2 (04:26→15:12)
[2020-12-18 04:45] LABS: Calcium 8.1 mg/dL (8.6-10.3); Potassium 4.2 mEq/L (3.5-5.1)
[2020-12-18] MEDS: Nicotine 21 MG PATCH.TD24 TD SCH (07:14)
[2020-12-18] MEDS: polyethylene glycoL 3350 17 GM POWD.PACK PO SCH (07:14)
[2020-12-18] MEDS: Gabapentin 100 MG CAPSULE PO SCH ×3 (07:14→19:52)
[2020-12-18] MEDS: allopurinoL 100 MG TABLET PO SCH (07:14)
[2020-12-18] MEDS: calcitrioL 0.25 MCG CAPSULE PO SCH (07:14)
[2020-12-18] MEDS ORDERED: *HR* Heparin 10,000 UNIT/10 ML VIAL IV PRN ×2 (08:14)
[2020-12-18] MEDS ORDERED: 0.9 % Sodium Chloride 250 ML IVC PRN (08:14)
[2020-12-18] MEDS: Acyclovir 200 MG CAPSULE PO SCH (15:11)
[2020-12-18] MEDS: hydrOXYzine pamoate 25 MG CAPSULE PO PRN (15:11)
[2020-12-18] MEDS: Melatonin 3 MG TABLET PO SCH (19:51)
[2020-12-18] MEDS: traZODone 50 MG TABLET PO SCH (19:51)
[2020-12-19 02:57] LABS: Basophils # 0.1 K/mcL (0.0-0.2); Basophils % 2.6 %; Eosinophils # 0.8 K/mcL (0.0-0.6); Eosinophils % 19.2 %; Hematocrit 27.1 % (37.5-50.1); Hemoglobin 8.1 g/dL (12.9-16.9); Immature Granulocytes % 0.5 % (0-4); Lymphocytes # 0.6 K/mcL (0.6-4.6); Lymphocytes % 14.8 %; Mean Corpuscular HGB Conc 29.9 g/dL (31.6-35.5); Mean Corpuscular Hemoglobin 28.8 pg (28.0-33.3); Mean Corpuscular Volume 96.4 fL (83.0-100.0); Mean Platelet Volume 9.5 fL (9.4-12.4); Monocytes # 0.5 K/mcL (0.0-1.3); Monocytes % 13.3 %; Neutrophils # 1.9 K/mcL (1.6-8.9); Platelet Count 289 K/mcL (140-400); Red Blood Count 2.81 M/mcL (4.19-5.50); Red Cell Distribution Width 13.7 % (11.5-14.5); Segmented Neutrophils % 49.6 %; White Blood Count 3.9 K/mcL (4.3-11.1)
[2020-12-19 03:17] LABS: Calcium 8.3 mg/dL (8.6-10.3); Magnesium 1.9 mg/dL (1.6-2.6); Phosphorous 5.5 mg/dL (2.7-4.5); Potassium 4.4 mEq/L (3.5-5.1)
[2020-12-19 03:19] VITALS: O2SAT 95
[2020-12-19] MEDS: *HR* Heparin 5,000 UNIT/ML VIAL SQ SCH (05:09)
[2020-12-19 07:00] VITALS: PULSE 73
[2020-12-19] MEDS ORDERED: *HR* Heparin 10,000 UNIT/10 ML VIAL IV PRN (08:14)
[2020-12-19] MEDS ORDERED: 0.9 % Sodium Chloride 250 ML IVC PRN (08:14)
[2020-12-19] MEDS: Nicotine 21 MG PATCH.TD24 TD SCH (08:14)
[2020-12-19] MEDS: *HR* Methadone 5 MG TABLET PO SCH (08:15)
[2020-12-19] MEDS: Gabapentin 100 MG CAPSULE PO SCH (08:15)
[2020-12-19] MEDS: calcitrioL 0.25 MCG CAPSULE PO SCH (08:15)
[2020-12-19] MEDS: allopurinoL 100 MG TABLET PO SCH (08:15)
[2020-12-19] MEDS: polyethylene glycoL 3350 17 GM POWD.PACK PO SCH (08:51)
[2020-12-19 09:50] VITALS: TEMP 98
[2020-12-19 14:44] VITALS: BP 124/74
== END 2020-12-19 13:55 | disposition home or self-care (01) | DRG 721 ==
LOC: 2ANU 14:20 → EMEROOARM 14:20 → 2ANU 18:26 → SUATTDRO 11-26 10:49 → 2ANU 12-11 19:24
PROVIDERS: ADMIT Student in an Organized Health Care Education/Training Program; ATTEND Pharmacist
PROC: IRPERMA (2020-12-04 12:00)